=== PATIENT | female | born 1970 | race Two or more races ===

== ENCOUNTER 2021-07-23 10:33 | Emergency (ER) | payer MEDICAID, OTHER ==
[~2021-07-23] VITALS: Ht 154.9 cm; Wt 90.7 kg
[2021-07-23 11:16] VITALS: BP 164/79
== END 2021-07-23 12:54 | disposition home or self-care (01) ==
LOC: ER 10:33
DX: M77.8 Other enthesopathies, not elsewhere classified (principal); I10 Essential (primary) hypertension; E11.9 Type 2 diabetes mellitus without complications; E78.5 Hyperlipidemia, unspecified